=== PATIENT | female | born 1950 | race Caucasian/White ===

== ENCOUNTER → 2019-09-13 | Outpatient (CLI) | payer MEDICARE ==
[~2019-09-13] MED LIST: ATEN100; ATEN50 PO; CHOL10002; CRESTOR 20MG PO; FISH1000 PO; Multiple Vitam1 EAC1 PO; NAPR220 PO; PRIM50 PO; Pepcid40 MG PO; ROSU10TA PO; Vitamin E400 UNI4; Zofran Odt4 MG SL
[2019-09-13 13:52] LABS: BASOPHILS ABSOLUTE AUTO 0.08 K/mm3 (0.00-0.23); BASOPHILS PERCENT AUTO 1 % (0-2); EOSINOPHILS ABSOLUTE AUTO 0.19 K/mm3 (0.00-0.68); EOSINOPHILS PERCENT AUTO 2 % (0-6); Hematocrit 48.6 % (33.0-51.0); Hemoglobin 16.3 g/dL (11.5-16.0); IMMATURE GRAN ABSOLUTE AUTO 0.02 K/mm3 (0.00-0.10); IMMATURE GRAN PERCENT AUTO 0 % (0-1); LYMPHOCYTES ABSOLUTE AUTO 2.95 K/mm3 (0.84-5.20); LYMPHOCYTES PERCENT AUTO 36 % (21-46); MONOCYTES ABSOLUTE AUTO 0.71 K/mm3 (0.16-1.47); MONOCYTES PERCENT AUTO 9 % (4-13); Mean Corpuscular HGB 29.6 pg (26.0-34.0); Mean Corpuscular HGB Conc 33.5 g/dL (31.5-36.5); Mean Corpuscular Volume 88 fL (80-100); Mean Platelet Volume 10.1 fL (9.1-12.4); NEUTROPHILS ABSOLUTE AUTO 4.25 K/mm3 (1.96-9.15); NEUTROPHILS PERCENT AUTO 52 % (41-73); Platelet Count 278 K/mm3 (150-400); RDW Coefficient Variation 14.1 % (11.7-14.2); RDW Standard Deviation 45.7 fL (35.1-46.3)
[2019-09-13 14:01] LABS: Alanine Aminotransfer (ALT/SGP 48 U/L (12-78); Albumin, Blood 3.9 g/dL (3.4-5.0); Albumin/Globulin Ratio 1.1 (0.8-1.8); Alk Phos 104 U/L (40-126); Anion Gap 7 mmol/L (6-16); Aspartate Aminotrans (AST/SGOT 33 U/L (12-37); Bilirubin, Total 0.6 mg/dL (0.1-1.0); Blood Urea Nitrogen 17 mg/dL (8-24); Bun/Creatinine Ratio 22.1 (12.0-20.0); CO2, Blood 27 mmol/L (21-32); Calcium, Blood 9.7 mg/dL (8.5-10.1); Chloride, Blood 110 mmol/L (98-108); Creatinine, Blood 0.77 mg/dL (0.40-1.00); Globulin, Blood 3.5 g/dL (2.2-4.0); Glomerular Filtration Rate >60 (60-); Glucose, Blood 105 mg/dL (70-99); Sodium, Blood 144 mmol/L (136-145); Total Protein, Blood 7.4 g/dL (6.4-8.2)
== END | disposition home or self-care (01) ==
LOC: LAB EV 13:47 → LAB SHORT 13:47
PROVIDERS: Physician Assistant
DX: I10 Essential (primary) hypertension (principal)
CPT/HCPCS: 80053; 85025

== ENCOUNTER 2020-12-13 07:37 | Day surgery (SDC) | payer OTHER ==
[2020-12-17 13:41] LABS: Performing Lab SYMBIODX; Test Name HER2 FISH
[2020-12-23 10:30] LABS: Result SEE PATHOTH RESULTS
[2021-01-06] MEDS ORDERED: ASPI81CH PO (14:26)
[2021-01-06] MEDS ORDERED: MULVITA PO (14:26)
[2021-01-06] MEDS ORDERED: VITAMIN D310 MC4 PO (14:27)
== END 2020-12-13 22:46 | disposition home or self-care (01) ==
LOC: MOI US 07:37 → MOI MAM 08:00 → MOI US 08:00
PROVIDERS: Pathology Anatomic Pathology & Clinical Pathology
DX: C50.411 Malignant neoplasm of upper-outer quadrant of right female breast (principal)
CPT/HCPCS: 19083; 77065; 88305; 88342; 88360; 88374; A4648

== ENCOUNTER 2021-01-10 08:11 | Day surgery (SDC) | payer OTHER ==
[~2021-01-10] VITALS: Ht 157.5 cm; Wt 86.7 kg
[~2021-01-10 08:11] MED LIST changes: +ASPI81CH PO; +MULVITA PO; +VITAMIN D310 MC4 PO
--- NOTE | 2021-01-10 09:49 | NUR ---
Ambulatory in Day Surgery Surgical site prepped with 2% Chlorhexidine cloth wipe. [place] warming gown applied. History, Chart, Medications and Allergies reviewed before start of procedure.Lungs clear T/O to Auscultation. Patient confirms NPO status and agrees with scheduled surgery. Pre-Op teaching done. Pt verbalizes understanding. Patient States Post-Procedure ride home has been arranged. Patient reports completing Chlorhexadine shower X2 prior to admission to hospital.
--- NOTE | 2021-01-10 12:57 | NUR ---
PT REPORTS DIFFICULTY/PAINFUL TAKING DEEP BREATH IN. BREAST BINDER LOOSENED AT PT REPORTS RELIEF. BREAST BINDER REMOVED AND PERSONAL SPORTS BRA PLACED. PT REPORTS SHE IS MUCH MORE COMFORTABLE AND IS ABLE TO "BREATH BETTER"
--- NOTE | 2021-01-10 13:09 | NUR ---
1305 obtained care of patient. Pt sleeps when not disturbed. right chest dressing D&I with sports bra on. 02 pumped up to 2.5L N\C as sats dropping occ to 89%
--- NOTE | 2021-01-10 14:21 | NUR ---
Patient up to Ambulate independently. Gait steady. Discharge instructions reviewed with patient AND CAREGIVER . Patient verbalizes understanding. Copy given to patient to take home. Discharged via wheelchair to private car for ride home WITH CAREGIVER. PAIN RX GIVEN TO CAREGIVER WHILE PT IN STEP. PT GIVEN ICE PACKS AND BREAST BINDER TO TAKE HOME. PT REPORTS PAIN IS "GETTING BETTER BUT STILL THERE".
== END 2021-01-10 14:18 | disposition home or self-care (01) ==
LOC: NM 08:11 → ORSCMMR 08:11 → NM 09:00
PROVIDERS: Surgery
PROC: 0HBT0ZZ Excision of Right Breast, Open Approach (ICD-10-PCS; principal; 2021-01-10 10:00)
PROC: 07B50ZX Excision of Right Axillary Lymphatic, Open Approach, Diagnostic (ICD-10-PCS; principal; 2021-01-10 10:00)
DX: C50.411 Malignant neoplasm of upper-outer quadrant of right female breast (principal); Z85.3 Personal history of malignant neoplasm of breast; I10 Essential (primary) hypertension; E78.5 Hyperlipidemia, unspecified; G80.8 Other cerebral palsy; Z79.82 Long term (current) use of aspirin; Z79.899 Other long term (current) drug therapy
CPT/HCPCS: 38792; 88307; A9270; A9520; J0690; J1100; J2250; J2405; J2704; J3010; J7120; Q9968

== ENCOUNTER 2021-01-24 10:04 | Day surgery (SDC) | payer OTHER ==
[~2021-01-24] VITALS: Ht 157.5 cm; Wt 87.1 kg
--- NOTE | 2021-01-24 10:57 | NUR ---
01/24/21 1057 Gina Anthony (Melanie PT UPDATED ON DELAY; PT VERY UNDERSTANDING & CALM. PT STS SHE'LL STAY IN LOBBY TO WATCH TV WHILE SHE WAITS.
--- NOTE | 2021-01-24 13:20 | NUR ---
01/24/21 1320 Bhavna Bentley PT PLACED ON 2L O2 VIA NC IN SDU FOR O2SAT 88-90%, ON 02 SATS ARE 93%.
== END 2021-01-24 14:14 | disposition home or self-care (01) ==
LOC: ORSCSDS 10:04
PROVIDERS: Surgery
PROC: 0HBT0ZZ Excision of Right Breast, Open Approach (ICD-10-PCS; principal; 2021-01-24 11:15)
DX: C50.911 Malignant neoplasm of unspecified site of right female breast (principal); C77.3 Secondary and unspecified malignant neoplasm of axilla and upper limb lymph nodes; I10 Essential (primary) hypertension; E78.5 Hyperlipidemia, unspecified; G40.909 Epilepsy, unspecified, not intractable, without status epilepticus; E66.01 Morbid (severe) obesity due to excess calories; Z68.35 Body mass index [BMI] 35.0-35.9, adult; Z79.82 Long term (current) use of aspirin; Z79.899 Other long term (current) drug therapy
CPT/HCPCS: 88307; 88341; 88342; J0690; J1100; J2370; J2405; J2704; J3010; J7120

== ENCOUNTER → 2021-03-06 | Outpatient (CLI) | payer OTHER | END | disposition home or self-care (01) | LOC: LAB SHORT 17:07 | DX: N64.89 Other specified disorders of breast (principal) | CPT/HCPCS: 87070; 87075; 87205 ==

== ENCOUNTER → 2022-01-23 | Outpatient (CLI) | payer OTHER ==
[~2022-01-23] MED LIST changes: +TAMO10
[2022-01-27 15:12] LABS: HPV 16 Negative (Negative); HPV 18 Negative (Negative); HPV OTHER HR TYPES Negative (Negative)
== END | disposition home or self-care (01) ==
LOC: LAB 17:15 → LAB SHORT 17:15
PROVIDERS: Obstetrics & Gynecology
DX: Z01.419 Encounter for gynecological examination (general) (routine) without abnormal findings (principal)
CPT/HCPCS: 87624; G0123

== ENCOUNTER → 2022-01-23 | Outpatient (CLI) | payer OTHER | END | disposition home or self-care (01) | LOC: LAB SHORT 07:57 → PLD 07:57 | DX: Z15.09 Genetic susceptibility to other malignant neoplasm (principal) | CPT/HCPCS: 88305 ==

== ENCOUNTER → 2023-03-25 | Outpatient (CLI) | payer OTHER | END | disposition home or self-care (01) | LOC: LAB SHORT 13:14 → LAB 13:14 | DX: C54.1 Malignant neoplasm of endometrium (principal) | CPT/HCPCS: 88305 ==